=== PATIENT | female | born 1950 | race Caucasian/White ===

== ENCOUNTER 2021-09-02 18:45 | Inpatient (IN) | payer MEDICARE ==
[~2021-09-02] VITALS: Ht 160 cm; Wt 114.1 kg
[2021-09-02 21:31] LABS: BASOPHIL 0.6 % (0-2); EOSINOPHIL 0.9 % (0-7); HCT 37.8 % (37.0-47.0); LYMPHOCYTE 14.9 % (15-48); MCHC 29.1 g/dL (32.0-36.0); MCV 78.9 fL (78.0-100.0); MONOCYTE 10.1 % (0-12); MPV 10.7 fL (6.0-9.5); NEUTROPHIL 72.7 % (41-80); NRBC 0; PLT 454 K/uL (150-400); RBC 4.79 M/uL (4.20-5.40); RDW 16.5 % (11.5-14.0); WBC 9.6 K/uL (4.0-10.5)
[2021-09-02 22:01] LABS: BILIRUBIN - TOTAL 0.5 mg/dL (0.2-1.0); BUN/CREAT RATIO (CALC) 15.4 RATIO; CREATININE 1.43 mg/dL (0.51-0.95); GLOBULIN (CALCULATION) 4.7 g/dL; POTASSIUM 4.3 mmol/L (3.5-5.1); TOTAL PROTEIN 7.7 g/dL (6.4-8.2)
[2021-09-02 22:02] LABS: LACTIC ACID 0.9 mmol/L (0.4-1.9)
[2021-09-02 23:28] LABS: BILIRUBIN NEGATIVE (NEGATIVE); BLOOD NEGATIVE Ery/uL (NEGATIVE); CLARITY CLEAR (CLEAR); COLOR YELLOW (YELLOW); GLUCOSE (U) NORMAL (NORMAL); LEUKOCYTES NEGATIVE Leu/uL (NEGATIVE); NITRITE NEGATIVE (NEGATIVE); PROTEIN NEGATIVE (NEGATIVE); UROBILINOGEN 0.2 mg/dL (0.2-1.0)
[2021-09-03] MEDS ORDERED: NORVASC5 MG PO (05:01)
[2021-09-03] MEDS ORDERED: ALLOPURINOL100 MG PO (05:01)
[2021-09-03] MEDS ORDERED: ASPIRIN EC81 MG PO (05:02)
[2021-09-03] MEDS ORDERED: FLORASTOR250 MG PO (05:02)
[2021-09-03] MEDS ORDERED: PROZAC20 MG PO (05:03)
[2021-09-03] MEDS ORDERED: LEVAQUIN750 MG PO (05:03)
[2021-09-03] MEDS ORDERED: LOPRESSOR25 MG PO (05:03)
[2021-09-03] MEDS ORDERED: SENOKOT8.6 MG PO (05:04)
[2021-09-03] MEDS ORDERED: MIRALAX17 GM PO (05:04)
[2021-09-03] MEDS ORDERED: TRAZODONE 50MG50 MG PO (05:05)
[2021-09-03 06:12] LABS: BASOPHIL 0.7 % (0-2); EOSINOPHIL 1.2 % (0-7); HCT 36.1 % (37.0-47.0); HGB 10.4 g/dl (12.5-16.0); LYMPHOCYTE 12.1 % (15-48); MCH 22.8 pg (25.0-31.0); MCHC 28.8 g/dL (32.0-36.0); MCV 79.2 fL (78.0-100.0); MPV 9.8 fL (6.0-9.5); NEUTROPHIL 74.3 % (41-80); NRBC 0; PLT 421 K/uL (150-400); RBC 4.56 M/uL (4.20-5.40); RDW 16.5 % (11.5-14.0); WBC 9.8 K/uL (4.0-10.5)
[2021-09-03 06:35] LABS: BUN/CREAT RATIO (CALC) 14.8 RATIO; CREATININE 1.42 mg/dL (0.51-0.95); MAGNESIUM 1.9 mg/dL (1.8-2.4); PHOSPHORUS 3.9 mg/dL (2.6-4.7); POTASSIUM 4.3 mmol/L (3.5-5.1)
[2021-09-03 06:48] LABS: CKMB 0.8 ng/mL (0.0-3.6)
[2021-09-04 05:32] LABS: BASOPHIL 0.9 % (0-2); EOSINOPHIL 1.1 % (0-7); HCT 36.9 % (37.0-47.0); HGB 10.4 g/dl (12.5-16.0); LYMPHOCYTE 14.1 % (15-48); MCH 22.6 pg (25.0-31.0); MCHC 28.2 g/dL (32.0-36.0); MCV 80.2 fL (78.0-100.0); MONOCYTE 10.8 % (0-12); MPV 9.9 fL (6.0-9.5); NEUTROPHIL 72.4 % (41-80); NRBC 0; PLT 454 K/uL (150-400); RDW 16.7 % (11.5-14.0)
[2021-09-04 05:52] LABS: BUN/CREAT RATIO (CALC) 13.7 RATIO; CREATININE 1.82 mg/dL (0.51-0.95); POTASSIUM 3.8 mmol/L (3.5-5.1)
[2021-09-05 06:44] LABS: BASOPHIL 0.8 % (0-2); EOSINOPHIL 2.7 % (0-7); HCT 35.6 % (37.0-47.0); HGB 10.2 g/dl (12.5-16.0); LYMPHOCYTE 19.6 % (15-48); MCH 22.8 pg (25.0-31.0); MCHC 28.7 g/dL (32.0-36.0); MCV 79.6 fL (78.0-100.0); MONOCYTE 12.7 % (0-12); MPV 10.1 fL (6.0-9.5); NEUTROPHIL 63.7 % (41-80); NRBC 0; PLT 448 K/uL (150-400); RBC 4.47 M/uL (4.20-5.40); RDW 16.2 % (11.5-14.0); WBC 9.1 K/uL (4.0-10.5)
[2021-09-05 08:58] LABS: CREATININE 2.03 mg/dL (0.51-0.95); POTASSIUM 4.3 mmol/L (3.5-5.1)
[2021-09-06 06:39] LABS: BASOPHIL 0.7 % (0-2); EOSINOPHIL 3.7 % (0-7); HCT 34.3 % (37.0-47.0); HGB 9.9 g/dl (12.5-16.0); LYMPHOCYTE 22.9 % (15-48); MCH 22.6 pg (25.0-31.0); MCHC 28.9 g/dL (32.0-36.0); MCV 78.3 fL (78.0-100.0); MONOCYTE 12.9 % (0-12); MPV 9.9 fL (6.0-9.5); NEUTROPHIL 59.1 % (41-80); NRBC 0; PLT 403 K/uL (150-400); RBC 4.38 M/uL (4.20-5.40); RDW 15.9 % (11.5-14.0)
[2021-09-06 07:00] LABS: BUN/CREAT RATIO (CALC) 18.9 RATIO; CREATININE 1.9 mg/dL (0.51-0.95); POTASSIUM 3.9 mmol/L (3.5-5.1)
[2021-09-07 06:58] LABS: CREATININE 1.67 mg/dL (0.51-0.95); POTASSIUM 3.4 mmol/L (3.5-5.1)
[2021-09-08 06:58] LABS: BUN/CREAT RATIO (CALC) 15.7 RATIO; CREATININE 1.59 mg/dL (0.51-0.95)
[2021-09-09 06:22] LABS: BASOPHIL 0.8 % (0-2); EOSINOPHIL 4.3 % (0-7); HCT 36.6 % (37.0-47.0); HGB 10.5 g/dl (12.5-16.0); LYMPHOCYTE 19.8 % (15-48); MCH 22.3 pg (25.0-31.0); MCHC 28.7 g/dL (32.0-36.0); MCV 77.7 fL (78.0-100.0); MONOCYTE 11.2 % (0-12); MPV 9.6 fL (6.0-9.5); NRBC 0; PLT 410 K/uL (150-400); RBC 4.71 M/uL (4.20-5.40); RDW 16.5 % (11.5-14.0); WBC 9.9 K/uL (4.0-10.5)
[2021-09-09 06:48] LABS: BUN/CREAT RATIO (CALC) 13.7 RATIO; CREATININE 1.39 mg/dL (0.51-0.95)
[2021-09-09] MEDS ORDERED: LASIX40 MG PO (08:38)
== END 2021-09-10 09:21 | DRG 291 ==
LOC: FER 18:45 → FTCU 23:18
PROVIDERS: Allergy & Immunology Allergy; Emergency Medicine; Family Medicine; Internal Medicine Cardiovascular Disease; Nurse Practitioner; Nurse Practitioner Family; ADMIT Internal Medicine
PROC: 5A09357 Assistance with Respiratory Ventilation, Less than 24 Consecutive Hours, Continuous Positive Airway Pressure (ICD-10-PCS; principal; 2021-09-04)
PROC: 5A09357 Assistance with Respiratory Ventilation, Less than 24 Consecutive Hours, Continuous Positive Airway Pressure (ICD-10-PCS; 2021-09-06)
PROC: 5A09357 Assistance with Respiratory Ventilation, Less than 24 Consecutive Hours, Continuous Positive Airway Pressure (ICD-10-PCS; 2021-09-07)
PROC: 5A09357 Assistance with Respiratory Ventilation, Less than 24 Consecutive Hours, Continuous Positive Airway Pressure (ICD-10-PCS; 2021-09-08)
DX: I13.0 Hypertensive heart and chronic kidney disease with heart failure and stage 1 through stage 4 chronic kidney disease, or unspecified chronic kidney disease (principal); I50.33 Acute on chronic diastolic (congestive) heart failure; J96.01 Acute respiratory failure with hypoxia; J96.02 Acute respiratory failure with hypercapnia; N17.9 Acute kidney failure, unspecified; E66.2 Morbid (severe) obesity with alveolar hypoventilation; Z68.42 Body mass index [BMI] 45.0-49.9, adult; Z20.822 Contact with and (suspected) exposure to COVID-19; N18.30 Chronic kidney disease, stage 3 unspecified; E11.22 Type 2 diabetes mellitus with diabetic chronic kidney disease; E11.65 Type 2 diabetes mellitus with hyperglycemia; K80.20 Calculus of gallbladder without cholecystitis without obstruction; G43.909 Migraine, unspecified, not intractable, without status migrainosus; I08.3 Combined rheumatic disorders of mitral, aortic and tricuspid valves; G47.33 Obstructive sleep apnea (adult) (pediatric); Z82.49 Family history of ischemic heart disease and other diseases of the circulatory system; Z79.899 Other long term (current) drug therapy
CPT/HCPCS: 36415; 36600; 70450; 71046; 71250; 76705; 80048; 80053; 81003; 82550; 82553; 82803; 82962; 83605; 83735; 83880; 84100; 84145; 84484; 85025; 87040; 93005; 94010; 94660; 94762; 96365; 96367; 96375; 97162; 97166; 97530-GP; 97535; J1650; J1940; J2060; J2405; J2543; J3010; J3370; J7030; J7050; U0002